=== PATIENT | female | born 1950 | race Caucasian/White ===

== ENCOUNTER 2023-01-04 10:20 | Emergency (ER) | payer MEDICARE, BC ==
[~2023-01-04] VITALS: Ht 160 cm; Wt 53.1 kg
[2023-01-04] MEDS ORDERED: LIDOCAINE HCL/MPF 1% 30 ML VIAL IJ ONE (10:45)
[2023-01-04] MEDS ORDERED: TDAP [DIPH/PERTUSSIS/TET] 0.5 ML VIAL IM ONE ×2 (11:07→11:30)
[2023-01-04 11:51] VITALS: BP 135/62
== END 2023-01-04 11:52 | disposition home or self-care (01) ==
LOC: ER 10:43
DX: S51.012A Laceration without foreign body of left elbow, initial encounter (principal); Z88.8 Allergy status to other drugs, medicaments and biological substances; W45.8XXA Other foreign body or object entering through skin, initial encounter; Y93.89 Activity, other specified; Y92.89 Other specified places as the place of occurrence of the external cause; Y99.8 Other external cause status
CPT/HCPCS: 99283; 12001; 90471; 90715; J3490